=== PATIENT | female | born 1935 | race Caucasian/White ===

== ENCOUNTER 2018-04-17 19:31 | Emergency (ER) | payer MEDICARE, BC ==
[~2018-04-17] VITALS: Ht 172.7 cm; Wt 39.0 kg
[~2018-04-17 19:31] MED LIST: ACET-2144 PO; ALD50T PO; ASPI-612 PO; CA C1TAB69 PO; CARB15DR78 OP; CARI350T PO; CELE-54 PO; CETI-85 PO; CLOB15OI10 TP; CRAN450T9 PO; DHEA25 PO; DONE5TAB3 PO; EPIN0.3A3 IM; GINK120C PO; GLUC1CAP6 PO; LANS15CA47 PO; MULT-1085 PO; MUPI15CR4 TP; OMEP-84 PO; QUIN324C3 PO; RED600TA PO; SYN0.0125T PO; TRAM50TA2 PO; TRIA16.5 NS
[2018-04-17 19:50] VITALS: BP 121/51
== END 2018-04-17 22:28 | disposition home or self-care (01) ==
LOC: ER 19:32
DX: S62.397A Other fracture of fifth metacarpal bone, left hand, initial encounter for closed fracture (principal); S00.83XA Contusion of other part of head, initial encounter; S60.212A Contusion of left wrist, initial encounter; F03.90 Unspecified dementia, unspecified severity, without behavioral disturbance, psychotic disturbance, mood disturbance, and anxiety; E03.9 Hypothyroidism, unspecified; Z88.0 Allergy status to penicillin; Z88.2 Allergy status to sulfonamides; Z88.8 Allergy status to other drugs, medicaments and biological substances; Z79.82 Long term (current) use of aspirin; Z79.899 Other long term (current) drug therapy; W18.30XA Fall on same level, unspecified, initial encounter; Y93.89 Activity, other specified; Y92.89 Other specified places as the place of occurrence of the external cause; Y99.8 Other external cause status
CPT/HCPCS: 29125; 70450; 73130; 99284

== ENCOUNTER 2018-05-06 13:52 | Outpatient (CLI) | payer MEDICARE, BC ==
[2018-05-06 14:04] VITALS: BP 112/76
== END 2018-05-06 14:29 | disposition home or self-care (01) ==
LOC: ORTHO 13:52
PROVIDERS: ATTEND Nurse Practitioner Family
DX: S62.347A Nondisplaced fracture of base of fifth metacarpal bone, left hand, initial encounter for closed fracture (principal); E03.9 Hypothyroidism, unspecified; F03.90 Unspecified dementia, unspecified severity, without behavioral disturbance, psychotic disturbance, mood disturbance, and anxiety; M18.9 Osteoarthritis of first carpometacarpal joint, unspecified; M19.072 Primary osteoarthritis, left ankle and foot; M85.88 Other specified disorders of bone density and structure, other site; Z88.0 Allergy status to penicillin; Z88.2 Allergy status to sulfonamides; Z88.8 Allergy status to other drugs, medicaments and biological substances; Z79.82 Long term (current) use of aspirin; Z79.899 Other long term (current) drug therapy; Z87.891 Personal history of nicotine dependence; X58.XXXA Exposure to other specified factors, initial encounter; Y93.89 Activity, other specified; Y92.89 Other specified places as the place of occurrence of the external cause; Y99.8 Other external cause status
CPT/HCPCS: 73130; 99213

== ENCOUNTER 2018-05-20 13:34 | Outpatient (CLI) | payer MEDICARE, BC ==
[2018-05-20 13:36] VITALS: BP 129/77
== END 2018-05-20 14:00 | disposition home or self-care (01) ==
LOC: ORTHO 13:34
PROVIDERS: ATTEND Nurse Practitioner Family
DX: S62.347 Nondisplaced fracture of base of fifth metacarpal bone, left hand (principal); M19.042 Primary osteoarthritis, left hand; F03.90 Unspecified dementia, unspecified severity, without behavioral disturbance, psychotic disturbance, mood disturbance, and anxiety; Z79.899 Other long term (current) drug therapy; Z88.0 Allergy status to penicillin; Z88.2 Allergy status to sulfonamides; Z88.8 Allergy status to other drugs, medicaments and biological substances; Z91.030 Bee allergy status; Z90.710 Acquired absence of both cervix and uterus; Z79.82 Long term (current) use of aspirin; Z87.891 Personal history of nicotine dependence; W19.XXXD Unspecified fall, subsequent encounter
CPT/HCPCS: 73130; 99213

== ENCOUNTER 2018-06-13 13:46 | Outpatient (CLI) | payer MEDICARE, BC ==
[2018-06-13 14:11] VITALS: BP 128/73
== END 2018-06-13 14:39 | disposition home or self-care (01) ==
LOC: ORTHO 13:46
PROVIDERS: ATTEND Nurse Practitioner Family
DX: S62.347 Nondisplaced fracture of base of fifth metacarpal bone, left hand (principal); M19.042 Primary osteoarthritis, left hand; Z79.899 Other long term (current) drug therapy; Z79.82 Long term (current) use of aspirin; Z91.030 Bee allergy status; Z88.0 Allergy status to penicillin; Z88.2 Allergy status to sulfonamides; Z88.1 Allergy status to other antibiotic agents; Z88.8 Allergy status to other drugs, medicaments and biological substances; W19.XXXD Unspecified fall, subsequent encounter
CPT/HCPCS: 73130

== ENCOUNTER 2018-07-07 14:01 | Outpatient (CLI) | payer MEDICARE, BC ==
[2018-07-07 14:11] VITALS: BP 123/63
== END 2018-07-07 14:51 | disposition home or self-care (01) ==
LOC: ORTHO 14:01
PROVIDERS: ATTEND Nurse Practitioner Family
DX: S62.347 Nondisplaced fracture of base of fifth metacarpal bone, left hand (principal); Z79.899 Other long term (current) drug therapy; Z88.0 Allergy status to penicillin; Z88.2 Allergy status to sulfonamides; Z88.1 Allergy status to other antibiotic agents; Z91.030 Bee allergy status; Z88.8 Allergy status to other drugs, medicaments and biological substances; Z90.710 Acquired absence of both cervix and uterus; Z79.82 Long term (current) use of aspirin; X58.XXXD Exposure to other specified factors, subsequent encounter
CPT/HCPCS: 73130

== ENCOUNTER 2018-08-05 13:33 | Outpatient (CLI) | payer MEDICARE, BC ==
[2018-08-05 13:44] VITALS: BP 142/70
== END 2018-08-05 14:03 | disposition home or self-care (01) ==
LOC: ORTHO 13:33
PROVIDERS: ATTEND Nurse Practitioner Family
DX: S62.317D Displaced fracture of base of fifth metacarpal bone, left hand, subsequent encounter for fracture with routine healing (principal); M19.042 Primary osteoarthritis, left hand; M85.842 Other specified disorders of bone density and structure, left hand; Z98.890 Other specified postprocedural states; Z90.710 Acquired absence of both cervix and uterus; Z88.0 Allergy status to penicillin; Z88.1 Allergy status to other antibiotic agents; Z91.030 Bee allergy status; Z88.2 Allergy status to sulfonamides; Z88.8 Allergy status to other drugs, medicaments and biological substances; Z79.899 Other long term (current) drug therapy; Z79.82 Long term (current) use of aspirin; X58.XXXD Exposure to other specified factors, subsequent encounter
CPT/HCPCS: 73130; 99213